=== PATIENT | male | born 1960 | race Caucasian/White ===

== ENCOUNTER 2021-01-09 17:45 | Emergency (ER) | payer BC ==
[2021-01-09] MEDS ORDERED: HYDROmorphone 1 MG/ML CARPUJECT IVP STA ×2 (17:53→18:27)
[2021-01-09] MEDS ORDERED: ceFAZolin 2 GM/50 ML 2 GM/50 ML BAG IV STA (17:53)
[2021-01-09] MEDS ORDERED: SODIUM CHLORIDE 0.9% 1,000 ML IV STA (17:53)
[2021-01-09] MEDS ORDERED: TETANUS/DIPHTHERIA/PERTUSSIS 0.5 ML SYRINGE IM ONE (17:59)
--- NOTE | 2021-01-09 17:59 | ED Physician Documentation ---
History of Present Illness - Stated complaint Stated Complaint: RT 2 FINGERS SEVERED - History obtained from History obtained from: Patient, Family - History of Present Illness Timing: Today Pain level max: 6 Pain level now: 5 - Additonal information Additional information: 60-year-old male states that he was working with a table saw when it lacerated the right index finger and right thumb. He states it feels like there are barely holding on with tissue. Nothing makes it better or worse. Unknown last tetanus. Patient is right-handed. Review of Systems Ten Systems: 10 systems reviewed and negative Constitutional: denies: Fever, Chills GI: denies: Vomiting, Diarrhea Skin: denies: Rash Musculoskeletal: denies: Neck pain, Back pain Neurologic: denies: Headache PD PAST MEDICAL HISTORY - Past Medical History Past Medical History: No - Past Surgical History Past Surgical History: No - Present Medications Home Medications: Ambulatory Orders Medication Instructions Recorded Confirmed Ondansetron Odt [Zofran] 4 mg TL Q6H PRN #10 tablet 01/09/21 Oxycodone HCl/Acetaminophen 1 - 2 each PO Q6H PRN #14 tablet 01/09/21 [Percocet 5-325 mg Tablet] cephALEXin [Keflex] 500 mg PO Q6H #28 cap 01/09/21 - Allergies Allergies/Adverse Reactions: Allergies Allergy/AdvReac Type Severity Reaction Status Date / Time No Known Drug Allergies Allergy Verified 01/09/21 17:49 - Living Situation Living Situation: reports: With family Living Arrangement: reports: At home - Social History Does the pt have substance abuse?: No - Immunizations Immunizations: TDAP >10years/unknown PD ED PE NORMAL - Vitals Vital signs reviewed: Yes - General General: Alert and oriented X 3, No acute distress, Well developed/nourished - HEENT HEENT: Moist mucous membranes - Neck Neck: Supple, no meningeal sign - Cardiac Cardiac: RRR, Strong equal pulses - Respiratory Respiratory: No respiratory distress, Clear bilaterally - Abdomen Abdomen: Soft, Non tender, Non distended - Derm Derm: Warm and dry - Extremities Extremities: Other (near total amputations of the thumb and index finger of the R hand. near the IP joint of the thumb and PIP joint of the index finger. ) - Neuro Neuro: Alert and oriented X 3 - Psych Psych: Normal mood, Normal affect Results - Vitals Vitals: Vital Signs - 24 hr 01/09/21 01/09/21 01/09/21 17:49 19:01 21:00 Temperature 36.5 C 36.5 C 36.5 C Heart Rate 82 79 72 Respiratory 18 17 16 Rate Blood Pressure 133/89 H 143/83 H 150/81 H O2 Saturation 99 99 99 01/09/21 21:34 Temperature 36.5 C Heart Rate 70 Respiratory 16 Rate Blood Pressure 150/81 H O2 Saturation 99 Oxygen O2 Source Room air - Labs Labs: Laboratory Tests 01/09/21 01/09/21 18:02 18:02 WBC 8.5 RBC 4.72 Hgb 15.6 Hct 43.9 MCV 93.0 MCH 33.1 H MCHC 35.5 RDW 12.7 Plt Count 185 MPV 10.7 Neut # (Auto) 4.1 Lymph # (Auto) 3.0 [place] # (Auto) 0.8 Eos # (Auto) 0.4 Baso # (Auto) 0.1 Absolute Nucleated RBC 0.00 Nucleated RBC % 0.0 Sodium 141 Potassium 3.5 Chloride 104 Carbon Dioxide 24 Anion Gap 13.0 BUN 17 Creatinine 1.2 Estimated GFR (MDRD) 62 L Glucose 99 Calcium 9.4 - Rads (name of study) R hand xray Radiology: Prelim report reviewed, EMP read contemporaneously, See rad report R hand xay Radiology: Prelim report reviewed, EMP read contemporaneously, See rad report PD MEDICAL DECISION MAKING - ED course Complexity details: reviewed results, re-evaluated patient, considered differential, d/w patient, d/w family, d/w organizational research consultant ED course: 60-year-old male with near complete amputation of the right thumb and right index finger. Consulted Dr. Curiel, orthopedics who recommends discussing the case with hand surgery. Discussed the case with hand surgery, Dr. Win and Dr. Vaughn at the [facility]. They reviewed the patient's x-rays as well as images that were sent to the transfer center via secure email with the patient's permission. They do not feel that the fingers are salvageable at this point. They recommend a revision amputation. The revision amputation was performed by Dr. Curiel in the emergency department. Patient tolerated very well. Ancef given. Tetanus given. Pain controlled. We will place on antibiotics for home and have him follow-up closely with orthopedics. Patient counseled regarding signs and symptoms for which I believe and urgent re-evaluation would be necessary. Patient with good understanding of and agreement to plan and is comfortable going home at this time This document was made in part using voice recognition software. While efforts are made to proofread this document, sound alike and grammatical errors may occur. IMPRESSION: The thumb and second finger have been incompletely severed at the base of the first proximal phalanx and base of the second middle phalanx respectively. Volar soft tissues may be intact. No radiopaque foreign body IMPRESSION: Redemonstration of previously described comminuted fractures involving the distal phalanx of the right thumb with intra-articular extension to the interphalangeal joint and overlying soft tissue defects. No radiopaque soft tissue foreign bodies. Redemonstration of previously described comminuted fracture involving the right second finger middle phalanx with associated soft tissue defects. No radiopaque soft tissue foreign bodies. There is intra-articular extension to the proximal interphalangeal joint. Departure - Departure Disposition: 01 Home, Self Care Clinical Impression: Finger amputation, traumatic Qualifiers: Encounter type: initial encounter Qualified Code(s): S68.119A - Complete traumatic metacarpophalangeal amputation of unspecified finger, initial encounter Condition: Good Instructions: ED Laceration Amputation Finger Tip Open Tx Follow-Up: Robert Curiel MD [Provider Admit Priv/Credential] - 01/13/21 Prescriptions: cephALEXin [Keflex] 500 mg PO Q6H #28 cap Oxycodone HCl/Acetaminophen [Percocet 5-325 mg Tablet] 1 - 2 each PO Q6H PRN #14 tablet PRN Reason: pain Ondansetron Odt [Zofran] 4 mg TL Q6H PRN #10 tablet PRN Reason: Nausea / Vomiting Comments: Take all antibiotics until gone. Return if you worsen. Keep the wounds clean. I am prescribing a short course of narcotic pain medication for you. These are potentially dangerous and addictive medications that should be used carefully. These medications may constipate you. Take an fpiu-lhl-yvgalhg stool softener (docusate) twice daily with plenty of water while taking these medications. If you go 24 hours without a bowel movement, take tnsj-lqn-tvpkkve miralax, per package instructions. Do not drink or drive while taking these medications. If you received narcotic or sedating medications while in the emergency department, do not drive for 24 hours. Store this medication in a safe, secure place and out of reach of children. It is a violation of federal law to give or sell this medication to another person or to use in a manner other than prescribed. The ED will not refill narcotic prescriptions, including prescriptions lost or stolen. To dispose of unwanted medications: 1. [facility] at [address] [facility] in [facility] has a medication drop box. They accept prescription medications (in pill form) Wednesday through Wednesday 9:00 a.m. to 5:00 p.m. 2. The [facility] [employer] accepts prescription medications (in pill form only) for disposal year round. Call for more information. 3. Contact the [facility] for the next [facility] sponsored prescription drug collection event. , [phone], or [phone]; Discharge Date/Time: 01/09/21 21:34
[2021-01-09 18:06] LABS: BASOPHILS # (AUTO) 0.1 10^3/uL (0.0-0.1); BASOPHILS % (AUTO) 1.2 %; EOSINOPHILS # (AUTO) 0.4 10^3/uL (0.0-0.7); EOSINOPHILS % (AUTO) 4.2 %; HCT - HEMATOCRIT 43.9 % (42.0-52.0); HGB - HEMOGLOBIN 15.6 g/dL (14.0-18.0); LYMPHOCYTES % (AUTO) 35.6 %; MEAN CORPUSCULAR HEMOGLOBIN 33.1 pg (27.0-31.0); MEAN CORPUSCULAR HGB CONC 35.5 g/dL (32.0-36.0); MEAN PLATELET VOLUME 10.7 fL (7.4-11.4); MONOCYTES # (AUTO) 0.8 10^3/uL (0.0-1.0); MONOCYTES % (AUTO) 9.9 %; NEUTROPHILS # (AUTO) 4.1 10^3/uL (1.5-6.6); NEUTROPHILS % (AUTO) 48.7 %; PLT - PLATELET COUNT 185 10^3/uL (130-450); RED BLOOD COUNT 4.72 10^6/uL (4.70-6.10); RED CELL DISTRIBUTION WIDTH 12.7 % (12.0-15.0); WHITE BLOOD COUNT 8.5 x10^3/uL (4.8-10.8)
[2021-01-09 18:16] LABS: CALCIUM 9.4 mg/dL (8.5-10.3); CREATININE 1.2 mg/dL (0.6-1.2); POTASSIUM 3.5 mmol/L (3.5-5.0)
--- NOTE | 2021-01-09 18:28 | XRAY Report ---
PROCEDURE: Hand 3 View RT INDICATIONS: hand vs table saw TECHNIQUE: 4 views of the hand(s) acquired. COMPARISON: None FINDINGS: The thumb is been incompletely severed at the base of the distal phalanx with a maceration of the sof t tissues. The volar soft tissues may be intact. No radiopaque foreign body. The second finger has been incomplete centered at the middle phalangeal base. Small bone fragments no neema Again, volar soft tissues may be intact. No radiopaque foreign bodies. Normal bone mineralization. IMPRESSION: The thumb and second finger have been incompletely severed at the base of the first proximal phalanx and base of the second middle phalanx respectively. Volar soft tissues may be intact. No radiopaque foreign body Reviewed by: Hernan Fox MD on 01/09/2021 5:27 PM AKDT Approved by: Hernan Fox MD on 01/09/2021 5:27 PM AKDT Station ID: [id number]
[2021-01-09] MEDS ORDERED: ROPIVACAINE 0.5% PF 20 ML AMPULE SUBQ STA (19:06)
--- NOTE | 2021-01-09 19:38 | XRAY Report ---
PROCEDURE: Hand 2 View RT INDICATIONS: fractures TECHNIQUE: 3 views of the hand(s) acquired. COMPARISON: Radiograph from earlier same day FINDINGS: Bones: Redemonstration of comminuted fractures involving the distal phalanx of the right thumb with i ntra-articular extension to the interphalangeal joint. Overlying soft tissue defect compatible with s oft tissue injury/laceration there are small bony fragments in the soft tissues but no definite radio paque soft tissue foreign bodies. Redemonstration of moderately comminuted fracture involving the mid dle phalanx of the right second finger with intra-articular extension and multiple bony fragments. Ov erlying soft tissue defect/laceration. No radiopaque soft tissue foreign body identified. There has b een interval improved alignment of the fractured phalanges. Remainder of the visualized osseous struc tures appear intact. Soft tissues: No suspicious soft tissue calcifications. IMPRESSION: Redemonstration of previously described comminuted fractures involving the distal phalanx of the righ t thumb with intra-articular extension to the interphalangeal joint and overlying soft tissue defects . No radiopaque soft tissue foreign bodies. Redemonstration of previously described comminuted fracture involving the right second finger middle phalanx with associated soft tissue defects. No radiopaque soft tissue foreign bodies. There is intra -articular extension to the proximal interphalangeal joint. Reviewed by: Azeem Mckeon MD on 01/09/2021 7:37 PM PDT Approved by: Azeem Mckeon MD on 01/09/2021 7:37 PM PDT Station ID: [id number]
[2021-01-09] MEDS ORDERED: oxyCODONE/ACET 5/325 Prepack 4 PO STA (21:20)
--- NOTE | 2021-01-09 21:29 | CONSULTATION NOTE ---
Referring Provider Name of Referring Provider:: Dr De La Torre Consult Date: 01/09/21 Chief Complaint - Chief Complaint Chief Complaint: Tablesaw injury right thumb and index fingers History of Present Illness - History Obtained From Records Reviewed: Discussed with Dr. De La Torre History obtained from: patient - History of Present Illness HPI Comment/Other: This is a 60-year-old man who sustained a table saw injury this evening at home. He was using a table saw without a guard. With the sawblade moving, he went to reach near the blade to extract a piece of wood And his Right He is not had any previous problems with his dominant right handhand became drawn into the sawblade with injury to both thumb and index finger, near complete amputations. His tetanus has been updated in the emergency room as his last tetanus was 20 years ago.He has been given antibiotic prophylaxis. History - Family & Social History Living arrangement: At home Living Situation: With family - POLST Patient has POLST: No Meds/Allgy - Home Medications Home Medications: Ambulatory Orders Medication Instructions Recorded Confirmed Ondansetron Odt [Zofran] 4 mg TL Q6H PRN #10 tablet 01/09/21 Oxycodone HCl/Acetaminophen 1 - 2 each PO Q6H PRN #14 tablet 01/09/21 [Percocet 5-325 mg Tablet] cephALEXin [Keflex] 500 mg PO Q6H #28 cap 01/09/21 - Allergies Allergies/Adverse Reactions: Allergies Allergy/AdvReac Type Severity Reaction Status Date / Time No Known Drug Allergies Allergy Verified 01/09/21 17:49 Exam - Vital Signs Vital Signs: Vital Signs x48h Temp Pulse Resp BP Pulse Ox 01/09/21 19:01 36.5 C 79 17 143/83 H 99 01/09/21 17:49 36.5 C 82 18 133/89 H 99 - Physical Exam General Appearance: positive: Moderate distress Neck: positive: Nml inspection Respiratory: positive: Chest non-tender, No respiratory distress Cardiovascular: positive: Regular rate & rhythm Peripheral Pulses: positive: 2+ Extremities: negative: Other (He has near complete amputation of the index at the level of the proximal interphalangeal joint of the thumb at the interphalangeal joint, right hand. He has intact flexor tendon but complete disruption of the extensor tendon and marked comminution of the distal phalanx extending into the inner pha) Neurologic/Psychiatric: positive: Oriented x3, Motor nml, Sensation nml Conclusion and Plan - Lab Results Laboratory Results 01/09/21 18:02: Sodium 141, Potassium 3.5, Chloride 104, Carbon Dioxide 24, Anion Gap 13.0, BUN 17, Creatinine 1.2, Estimated GFR (MDRD) 62 L, Glucose 99, Calcium 9.4 01/09/21 18:02: WBC 8.5, RBC 4.72, Hgb 15.6, Hct 43.9, MCV 93.0, MCH 33.1 H, MCHC 35.5, RDW 12.7, Plt Count 185, MPV 10.7, Neut # (Auto) 4.1, Lymph # (Auto) 3.0, [place] # (Auto) 0.8, Eos # (Auto) 0.4, Baso # (Auto) 0.1, Absolute Nucleated RBC 0.00, Nucleated RBC % 0.0 - Diagnosis Diagnosis: Near complete amputation right index proximal interphalangeal and thumb interphalangeal joints right hand from tablesaw injury - Plan Plan: We placed a consultation with the [facility] hand service. They did not feel that salvage would lead to a functional outcome, therefore, they recommended primary amputation to the thumb and index finger, leaving as much tissue as possible. This is discussed with the patient and his who are in agreement. This was voiced both by myself and Dr. Roman.The patient is in agreement with the plan for her primary amputation at the proximal interphalangeal joint right index finger and interphalangeal joint right thumb. I discussed the risks, goals and likelihood of achieving goals and alterna tives including problems with amputations, need for revision of amputation which is likely, especially for index finger, infection and problems with wound healing.
[2021-01-09 21:34] VITALS: BP 150/81
--- NOTE | 2021-01-09 21:37 | OPERATIVE REPORT ---
Operative Report - General Procedure Date: 01/09/21 Planned Procedure: Amputation right index finger at proximal interphalangeal joint, amputation of right thumb at interphalangeal joint Pre-Op Diagnosis: Table saw traumatic amputations, partial to right index finger and thumb Procedure Performed: Amputation of right index finger at proximal interphalangeal joint and right thumb at interphalangeal joint Post Op Diagnosis: Same as preoperative diagnosis - Procedure Note Primary Surgeon: Robert Curiel MD Anesthesia Provider: Anesthes provided by surgeon, distal metacarpal blocks to right index and t Anesthesia Technique: Local Estimated Blood Loss (mL): 5 Indications: This is a 60-year-old man who sustained a table saw injury to the distal half of the right index finger and distal half of the right thumb. This caused severe disruption of skin, extensor tendon and bone involving the joint. His sensation was abnormal, no active movement because of bony instability and tendon dysfunction.Preop consultation with [facility] hand service was done with Dr. Roman and myself; there recommendations were for primary amputation rather than salvage as function is likely to be poor with salvage. Findings: He had disruption of skin, marked comminution of bone involving the proximal inner phalangeal joint and interphalangeal joint of both right index and thumb. Most of the injury was to the dorsal aspect with regard to skin, able to use volar skin for closure. He had very little active movement of either thumb or index finger distal to proximal inner phalangeal joint, marked bony instability from comminuted fracture that extended into both joints as documented by x-ray and exam. Complications: None - Other Other Information/Narrative: The patient was placed in the supine position, timeout procedure performed, distal metacarpal block was performed to both right index and right thumb. Using aseptic technique, a 25-gauge inch and half needle is used to perform the block using 0.5% Marcaine. A total of 12 cc of local anesthetic was utilized, approximately 6 cc for each finger. Thorough irrigation with normal saline and dilute soapy Hibiclens solution was performed. The right hand was prepped and draped in a sterile manner in the emergency room. He had very good anesthesia and was comfortable after the block, marked improvement in his pain. The thumb was done first and the digital tourniquet was applied, providing very good visualization of the near complete amputation. The bone fragments were debrided, skin edges were debrided. There was remnants of extensor tendon to both fingers, flexor tendons were intact but no bone stability. The right thumb was closed primarily skin to skin with 4-0 nylon after the flap had been sharply debrided to provide closure. There appeared to be reasonably good circulation after the tourniquet was released with bleeding at the amputation site to mild degree. The index finger was more complicated but still similar with skin debridement, tendon debridement and bone debridement required before doing primary wound closure with 4-0 nylon at the proximal interphalangeal joint level. He tolerated the procedure very well. Xeroform and tube gauze dressings were applied to the right index and thumb. He tolerated the procedure very well. He has been instructed in elevation, dressing care and follow-up appointment to my office at the [facility] in [place] next Wednesday. Dr. Roman will be prescribing his pain medications and oral antibiotic. He is likely to require a metatarsal ray amputation revision at a future date to provide better function for his right hand. He was instructed in elevation of his right hand to minimize swelling.
== END 2021-01-09 21:34 | disposition home or self-care (01) ==
LOC: ED 17:45
DX: S68.620A Partial traumatic transphalangeal amputation of right index finger, initial encounter (principal); S68.521A Partial traumatic transphalangeal amputation of right thumb, initial encounter; W31.2XXA Contact with powered woodworking and forming machines, initial encounter; Y93.89 Activity, other specified; Y92.009 Unspecified place in unspecified non-institutional (private) residence as the place of occurrence of the external cause; Z23 Encounter for immunization
CPT/HCPCS: 36415; 73120; 73130; 80048; 85025; 90471; 90715; 96365; 96375; 99284; J0690; J1170; 0202U